=== PATIENT | male | born 1980 | race Caucasian/White ===

== ENCOUNTER 2017-05-02 01:34 | Inpatient (IN) | payer BC, SELFPAY ==
[2017-05-02] MEDS ORDERED: Ondansetron HCl/PF 4 MG/2 ML Vial ONE (03:01)
[2017-05-02] MEDS ORDERED: Ketorolac Tromethamine 30 MG/ML VIAL ONE (05:30)
[2017-05-02] MEDS ORDERED: Diabetic Tussin 200 MG/10 ML UDCUP PO PRN (08:39)
[2017-05-02] MEDS ORDERED: Sodium Chloride 0.65% Nasal 44 ML BOT EA NARE PRN (08:39)
[2017-05-02] MEDS ORDERED: Milk Of Magnesia 30 ML UDCUP PO PRN (08:39)
[2017-05-02] MEDS ORDERED: Artificial Tears 18 DROP/0.9 ML EA EYE PRN (08:39)
[2017-05-02] MEDS ORDERED: Loperamide HCl 2 MG CAP PO PRN (08:39)
[2017-05-02] MEDS ORDERED: Eucerin (Mineral Oil/Petrolatum,White) 30 gm Jar TOP PRN (08:39)
[2017-05-02] MEDS ORDERED: Acetaminophen 325 MG TAB PO PRN (08:39)
[2017-05-02] MEDS ORDERED: cloNIDine 0.1 MG TAB PO PRN (08:39)
[2017-05-02] MEDS ORDERED: Morphine 5 MG/ML SYRINGE SLOW IVP PRN (08:39)
[2017-05-02] MEDS ORDERED: Zolpidem Tartrate 5 MG TAB PO PRN (08:39)
[2017-05-02] MEDS ORDERED: Ondansetron ODT 4 MG TAB PO PRN (08:39)
[2017-05-02] MEDS ORDERED: Mag-Al 1200 mg/1200 mg/30 ML UDCUP PO PRN (08:39)
[2017-05-02] MEDS ORDERED: Senokot 8.6 MG TAB PO PRN (08:39)
[2017-05-02] MEDS ORDERED: Chloraseptic Spray 180 ml Bottle PO PRN (08:39)
[2017-05-02] MEDS ORDERED: Loratadine 10 MG TAB PO PRN (08:39)
[2017-05-02] MEDS ORDERED: Ondansetron HCl/PF 4 MG/2 ML Vial IVP PRN (08:39)
[2017-05-02] MEDS ORDERED: hydrALAZINE 20 MG/ML VIAL SLOW IVP PRN (08:39)
[2017-05-02] MEDS ORDERED: Cefepime 2 GM in Sodium Chloride 0.9% 100 ML IVPB SCH (09:00)
[2017-05-02 09:09] LABS: #Eosinphils 0.2 thou/uL (0.0-0.7); #Monocytes 0.9 thou/uL (0.11-0.59); #Neutrophils 5.2 thou/uL (1.40-6.50); %Basophils 0.6 % (0.0-1.0); %Eosinophils 2.1 % (0.0-10.0); %Lymphocytes 13.1 % (21.0-51.0); %Monocytes 12.7 % (0.0-10.0); %Neutrophils 71.5 % (42.0-75.0); Hemoglobin 15.1 g/dL (14.0-18.0); Mean Corpuscular HGB CONC 35.1 g/dL (32.0-36.0); Mean Corpuscular Hemoglobin 33.9 pg (27.0-31.0); Mean Corpuscular Volume 96.7 fl (80.0-94.0); Mean Platelet Volume 6.9 fL (7.4-10.4); Platelet Count 239 thou/uL (130-400); RBC Distribution Width 11.8 % (11.5-14.5); Red Blood Cell (RBC) Count 4.46 mill/uL (4.70-6.10); White Blood Cell (WBC) Count 7.3 thou/uL (4.8-10.8)
[2017-05-02 09:26] LABS: Lactic Acid 3.5 mmol/L (0.5-2.2)
[2017-05-02 09:30] LABS: ALT (SGPT) 74 U/L (8-55); AST (SGOT) 86 U/L (5-34); Albumin 3.8 g/dL (3.5-5.0); Alkaline Phosphatase 102 U/L (40-150); Anion Gap 16 mmol/L (10-20); BUN (Urea Nitrogen) 13 mg/dL (8.9-20.6); Bilirubin, Total 0.4 mg/dL (0.2-1.2); Calc. Creatinine Clearance 0 mL/min (70-130); Calcium 8.6 mg/dL (7.8-10.44); Carbon Dioxide 22 mmol/L (22-29); Chloride 104 mmol/L (98-107); Estimated GFR-MDRD 75; Globulin 3.4 g/dL (2.4-3.5); Glucose 86 mg/dL (70-105); Protein, Total 7.2 g/dL (6.0-8.3); Sodium 138 mmol/L (136-145)
[2017-05-02] MEDS: Sodium Chloride 0.9% 1,000 ML IV SCH ×2 (10:56→23:28)
[2017-05-02 11:08] VITALS: BMI 27.1
[2017-05-02] MEDS: Enoxaparin Sodium 40 MG/0.4 ML SYRINGE SC SCH (11:28)
[2017-05-02] MEDS: Cyanocobalamin (Vitamin B-12) 1,000 MCG TAB PO SCH (11:28)
[2017-05-02] MEDS: Multivitamin W/ Minerals 1 TAB PO SCH (11:29)
[2017-05-02] MEDS: Famotidine 20 MG TAB PO SCH ×2 (11:29→20:10)
[2017-05-02] MEDS: Folic Acid 1 MG TAB PO SCH (11:29)
[2017-05-02] MEDS: Cefepime 2 GM, Syringe 2.5 ML in Sterile Water 10 ML SLOW IVP SCH ×2 (11:39→23:25)
[2017-05-02] MEDS: Vancomycin HCl 1.25 GM in Sodium Chloride 0.9% 250 ML 250 ML IVPB SCH ×2 (11:46→23:36)
[2017-05-02] MEDS: Morphine 5 MG/ML SYRINGE SLOW IVP PRN ×2 (13:09→15:56)
--- NOTE | 2017-05-02 15:54 | HP ---
PRIMARY CARE PHYSICIAN: City call admission. REASON FOR ADMISSION: Right ear otitis media and externa, right parotitis, acute kidney failure, lac tic acidosis. HISTORY OF PRESENT ILLNESS: A 36-year-old male, who has history of meningitis when he was a child an d subsequently he lost his hearing from his left ear. He was having right ear pain and right ear dis charge for the last several days and that is why he went to the ER and the patient was given ear drop s. He was using ciprofloxacin otic drops, but the patient was not feeling any better, though he was feeling worse. He was having severe throbbing ear pain as well as right-sided facial pain, headache, and he was having subjective fever and that is why he decided to go to [facility] [place] ER, where the patie nt had a CT soft tissue and that that showed right otitis media and externa as well as foci of air an d there was concern of gas forming organism infection. The patient was also noticed right side of hi s facial swelling and he was having unbearable pain. He was given morphine 4 mg. He was given cefep herson and clindamycin at [facility] and he was also given Zofran and subsequently he was transferred to our hospital for higher level of care. When he presented to our emergency room, he was hypertensi ve from pain. ENT physician was consulted from ER. Family member was present at bedside and they pr ovided most of the history. Patient never had this type of ear infection in past. He denies any flu-like illness. He denies any recent upper respiratory infection. He denies any headache. He denies any focal motor symptoms. H e denies any chest pain, palpitation, or cough. He denies any UTI symptoms. He denies any constipat ion or diarrhea. ALLERGIES: No known drug allergies. CURRENT HOME MEDICATIONS: The patient is not taking any current medication other than he was using o tic drops for ear infection. REVIEW OF SYSTEMS: The following complete review of systems was negative, unless otherwise mentioned in the HPI or below: Constitutional: Weight loss or gain, ability to conduct usual activities. Skin: Rash, itching. Eyes: Double vision, pain. ENT/Mouth: Nose bleeding, neck stiffness, pain, tenderness. Cardiovascul ar: Palpitations, dyspnea on exertion, orthopnea. Respiratory: Shortness of breath, wheezing, cough, hemoptysis, fever or night sweats. Gastrointestinal: Poor appetite, abdominal pain, heartburn, naus ea, vomiting, constipation, or diarrhea. Genitourinary: Urgency, frequency, dysuria, nocturia. Musc uloskeletal: Pain, swelling. Neurologic/Psychiatric: Anxiety, depression. Allergy/Immunologic: Skin rash, bleeding tendency. Please see my HPI for pertinent positives and negative. All other review of systems reviewed and neg ative except as mentioned in the HPI. PAST MEDICAL HISTORY: History of meningitis when he was 2 years of age and after that he lost his he aring from the left ear. The patient is not up to date in the flu, pneumonia, and tetanus vaccinatio n. PAST SURGICAL HISTORY: Reviewed and negative. PAST PSYCHIATRIC HISTORY: Reviewed and negative. SOCIAL HISTORY: The patient drinks alcohol socially. He smokes cigarettes about 1 pack per day. He denies any other illicit drug abuse. He is working in a [employer] center. FAMILY HISTORY: No strong family history of premature coronary artery disease, stroke or cancer. EMERGENCY ROOM COURSE: Patient has received morphine 4 mg, Toradol 30 mg, Zofran 4 mg, morphine 4 mg and at [facility] room, patient was given Zofran, morphine, cefepime, and clindamycin. PHYSICAL EXAMINATION: VITAL SIGNS: Currently, blood pressure 191/124, pulse 104, respiratory rate 18, temperature 97.7, sa turation 96% on room air, and weight 86.1 kilograms. GENERAL: Patient is currently uncomfortable due to ear pain. HEAD: Normocephalic, atraumatic. EYES: Pupils round, reactive to light. Extraocular muscle intact. ENT: Right ear auditory canal appears to be obstructed and tender. Dental carries in right lower mo lar. The patient has tenderness behind in the right ear, no discharge noted at this point. NECK: Supple, no JVD, no thyromegaly, no carotid bruit, no jugular venous distention. LUNGS: Clear to auscultation without any rhonchi or rales. CARDIAC: S1, S2 regular without any murmur. ABDOMEN: Soft, bowel sounds present, nontender, nondistended. No organomegaly, no mass, no suprapub ic tenderness. BACK: Unremarkable, no CVA tenderness. EXTREMITIES: Upper extremity passive movement of all joints are normal. Lower extremities: No ivone a. Good peripheral pulsation. SKIN: No skin rash. HEMATOLOGICAL: No lymphadenopathy. PSYCHIATRIC: Normal affect. SIGNIFICANT LABORATORY DATA: 1. CBC: WBC 7.3, hemoglobin 15.1, platelets 239. BMP: Sodium 138, potassium 4.0, chloride 104, ca rbon dioxide 22, anion gap 16, BUN 13, creatinine 1.10, glucose 86, calcium 8.6, lactic acid 3.5. 2. LFT: AST 86, ALT 74, alkaline phosphatase 102, albumin 3.8. Blood test done at [facility] completely reviewed by me. CT neck done at [facility] reported as a right-sided otitis externa, otitis media, and right parotitis, foci of air within the right parotid , suspicious for gas forming infection. ASSESSMENT AND PLAN: 1. Acute right otitis media and otitis externa failed outpatient therapy. We will start cefepime 2 gram IV q.12 hourly and vancomycin as per pharmacy as adjusted dose and we will also continue ciprofl oxacin otic drops right ear b.i.d. We will consult ENT further opinion. We will control his pain wi th morphine p.r.n. basis. 2. History of right parotitis with right-sided facial cellulitis. Patient is already on cefepime an d vancomycin and we will monitor clinical response. 3. Acute kidney failure. The patient will be given IV fluid and will repeat BMP tomorrow, already p fabricio's creatinine has improvement from [facility] [place] ER labs with IV fluids. 4. Lactic acidosis. We will repeat lactic acid tomorrow likely due to underlying infection. 5. Abnormal liver function tests, likely due to his alcohol abuse and probably also related with sep sis. We will repeat LFTs tomorrow. 6. Tobacco abuse disorder. Smoking cessation counseling given. Healthy lifestyle measures discusse d with the patient. 7. Hypertension, likely due to his pain, but patient is not having any previous history of hypertens ion. We will monitor while in hospital and if patient remains persistently hypertensive, then we natalie l consider antihypertensive medication on discharge, alcohol abuse, and patient will be given folic a willy, vitamin B12 therapy, and patient counseling given to avoid alcohol abuse. 8. Deep venous thrombosis prophylaxis. Lovenox 40 mg subcutaneously daily. 9. Gastrointestinal prophylaxis. Pepcid 20 mg p.o. b.i.d. 10. Code status: The patient is FULL CODE. The patient is making his own decision and he does not have any surrogate decision maker. Disposition plan based on clinical course. We are expecting patient's stay in the hospital more than 2 midnights. Plan of care discussed with the patient and family member at bedside.
[2017-05-02] MEDS: Ciprofloxacin 0.2% Otic R EAR SCH ×2 (19:04→20:11)
[2017-05-02] MEDS: HYDROcodone/Acetaminophen 10/325 mg Tablet PO PRN (20:10)
[2017-05-03] MEDS: HYDROcodone/Acetaminophen 10/325 mg Tablet PO PRN ×5 (00:01→23:29)
[2017-05-03] MEDS: Sodium Chloride 0.9% 1,000 ML IV SCH (03:44)
[2017-05-03 05:58] LABS: ALT (SGPT) 54 U/L (8-55); AST (SGOT) 62 U/L (5-34); Albumin 3.4 g/dL (3.5-5.0); Alkaline Phosphatase 95 U/L (40-150); Anion Gap 9 mmol/L (10-20); BUN (Urea Nitrogen) 11 mg/dL (8.9-20.6); Bilirubin, Total 0.4 mg/dL (0.2-1.2); Calc. Creatinine Clearance 127 mL/min (70-130); Calcium 8.2 mg/dL (7.8-10.44); Carbon Dioxide 28 mmol/L (22-29); Chloride 101 mmol/L (98-107); Estimated GFR-MDRD 87; Globulin 3.1 g/dL (2.4-3.5); Glucose 126 mg/dL (70-105); Potassium 3.4 mmol/L (3.5-5.1); Protein, Total 6.5 g/dL (6.0-8.3); Sodium 135 mmol/L (136-145)
[2017-05-03 06:02] LABS: Lactic Acid 1.9 mmol/L (0.5-2.2)
[2017-05-03 06:10] LABS: Band 9 % (5-11); Hemoglobin 14.4 g/dL (14.0-18.0); Lymphocytes 35 % (21-51); MDiff Complete? YES; Macrocytosis SLIGHT = 6-15 cells (100X) (0-5/hpf); Mean Corpuscular HGB CONC 34.2 g/dL (32.0-36.0); Mean Corpuscular Hemoglobin 33.2 pg (27.0-31.0); Mean Platelet Volume 7.2 fL (7.4-10.4); Monocytes 11 % (0-10); Neutrophil 45 % (42-75); PLT Morphology Comment Appears Adequate; Platelet Count 210 thou/uL (130-400); RBC Distribution Width 11.6 % (11.5-14.5); Red Blood Cell (RBC) Count 4.34 mill/uL (4.70-6.10); White Blood Cell (WBC) Count 5.2 thou/uL (4.8-10.8)
[2017-05-03] MEDS: Cyanocobalamin (Vitamin B-12) 1,000 MCG TAB PO SCH (09:18)
[2017-05-03] MEDS: Folic Acid 1 MG TAB PO SCH (09:18)
[2017-05-03] MEDS: Multivitamin W/ Minerals 1 TAB PO SCH (09:18)
[2017-05-03] MEDS: Famotidine 20 MG TAB PO SCH ×2 (09:19→20:45)
[2017-05-03] MEDS: Enoxaparin Sodium 40 MG/0.4 ML SYRINGE SC SCH (09:21)
[2017-05-03 09:42] LABS: Bilirubin Negative (Negative); Blood, Urine Small (Negative); Clarity CLEAR (Clear); Glucose, Urine (Dipstick) Negative (Negative); Leukocyte Negative (Negative); Nitrite Negative (Negative); Protein, Urine (Dipstick) Negative (Neg-Trace); Specific Gravity, Urine 1.015 (1.002-1.036); Urobilinogen 0.2 mg/dL (0.2-1.0)
[2017-05-03 09:43] LABS: Bacteria/HPF None Seen HPF (None Seen); Hyaline Casts/LPF 0-3 HYALINE CAST LPF (0-3 Hyaline); Pathc Cast-AUWi Flag 0.13 (0-2.49); Squamous Epithelial None Seen HPF (0-3); WBC/HPF 0-3 HPF (0-3)
[2017-05-03] MEDS: Ciprofloxacin 0.2% Otic R EAR SCH ×2 (10:46→20:45)
--- NOTE | 2017-05-03 10:54 | PDOC.PN ---
- Subjective Encounter Start Date: 05/03/17 Encounter Start Time: 09:00 -: old records requested/rev pt is doing well, no respi distress, has soft voice, no fever - Objective Resuscitation Status: Resuscitation Status FULL:Full Resuscitation MAR Reviewed: Yes Vital Signs & Weight: Vital Signs (12 hours) Temp Pulse Resp BP Pulse Ox 05/03/17 08:10 98.2 F 60 18 05/03/17 08:00 98.2 F 60 18 175/92 H 93 L 05/03/17 04:00 98.9 F 60 20 159/91 H 05/03/17 00:00 99.3 F 74 18 169/99 H Weight Weight 189 lb 2 oz I&O: 05/02/17 05/03/17 05/04/17 06:59 06:59 06:59 Intake Total 1570 Balance 1570 Result Diagrams: 05/03/17 05:24 05/03/17 05:24 Phys Exam - Physical Examination Constitutional: NAD HEENT: PERRLA, moist MMs, sclera anicteric Neck: no JVD, supple Respiratory: no wheezing, no rales, no rhonchi Cardiovascular: RRR, no significant murmur, no rub Gastrointestinal: soft, non-tender, no distention, positive bowel sounds Musculoskeletal: no edema, pulses present Neurological: non-focal, normal sensation, moves all 4 limbs Lymphatic: no nodes Psychiatric: normal affect, A&O x 3 Skin: no rash, normal turgor Dx/Plan (1) Acute kidney injury Code(s): N17.9 - ACUTE KIDNEY FAILURE, UNSPECIFIED Status: Acute (2) Hypertension Code(s): I10 - ESSENTIAL (PRIMARY) HYPERTENSION Status: Acute (3) Lactic acidosis Code(s): E87.2 - ACIDOSIS Status: Acute (4) Parotitis, acute Code(s): K11.21 - ACUTE SIALOADENITIS Status: Acute (5) Right otitis externa Code(s): H60.91 - UNSPECIFIED OTITIS EXTERNA, RIGHT EAR Status: Acute (6) Right otitis media Code(s): H66.91 - OTITIS MEDIA, UNSPECIFIED, RIGHT EAR Status: Acute (7) Transaminitis Code(s): R74.0 - NONSPEC ELEV OF LEVELS OF TRANSAMNS & LACTIC ACID DEHYDRGNSE Status: Acute (8) Alcohol abuse Code(s): F10.10 - ALCOHOL ABUSE, UNCOMPLICATED Status: Chronic (9) Deafness in left ear Code(s): H91.92 - UNSPECIFIED HEARING LOSS, LEFT EAR Status: Chronic (10) Tobacco abuse Code(s): Z72.0 - TOBACCO USE Status: Chronic - Plan cont current plan of care, plan discussed w/ family, continue antibiotics * continue cefepime and vancomycin * ENT to see today * pain controlled * discussed with family bedside * slowly improving * DC IVF. Review of Systems - Review of Systems Constitutional: negative: fever, chills, sweats, weakness, malaise, other ENT: Ear Pain. negative: Ear Discharge, Nose Pain, Nose Discharge, Nose Congestion, Mouth Pain, Mouth Swelling, Throat Pain, Throat Swelling, Other Respiratory: negative: Cough, Dry, Shortness of Breath, Hemoptysis, SOB with Excertion, Pleuritic Pain, Sputum, Wheezing Cardiovascular: negative: chest pain, palpitations, orthopnea, paroxysmal nocturnal dyspnea, edema, light headedness, other Gastrointestinal: negative: Nausea, Vomiting, Abdominal Pain, Diarrhea, Constipation, Melena, Hematochezia, Other Genitourinary: negative: Dysuria, Frequency, Incontinence, Hematuria, Retention , Other Musculoskeletal: negative: Neck Pain, Shoulder Pain, Arm Pain, Back Pain, Hand Pain, Leg Pain, Foot Pain, Other Skin: negative: Rash, Lesions, Marcus, Bruising, Other - Medications/Allergies Allergies/Adverse Reactions: Allergies Allergy/AdvReac Type Severity Reaction Status Date / Time No Known Drug Allergies Allergy Verified 05/02/17 10:27 Medications: Current Medications Acetaminophen (Tylenol) 650 mg PO Q4H PRN PRN Reason: Headache/Fever or Pain Hydrocodone Bitart/Acetaminophen ([place] 10/325) 1 tab PO Q4H PRN PRN Reason: Moderate Pain (4-6) Last Admin: 05/03/17 09:19 Dose: 1 tab Al Hydroxide/Mg Hydroxide (Maalox) 30 ml PO Q6H PRN PRN Reason: Heartburn or Indigestion Artificial Tears (Tears Naturale) 0 drop EA EYE PRN PRN PRN Reason: Dry Eyes Ciprofloxacin (Cipro 0.2% Otic) 4 drop R EAR BID [facility] Last Admin: 05/03/17 10:46 Dose: 4 drop Clonidine (Catapres) 0.1 mg PO Q4H PRN PRN Reason: Systolic BP > 180 Cyanocobalamin (Vitamin B-12) 1,000 mcg PO DAILY [facility] Last Admin: 05/03/17 09:18 Dose: 1,000 mcg Enoxaparin Sodium (Lovenox) 40 mg SC 0900 [facility] Last Admin: 05/03/17 09:21 Dose: 40 mg Famotidine (Pepcid) 20 mg PO BID [facility] Last Admin: 05/03/17 09:19 Dose: 20 mg Folic Acid (Folvite) 1 mg PO DAILY [facility] Last Admin: 05/03/17 09:18 Dose: 1 mg Guaifenesin (Robitussin Sf) 200 mg PO Q4H PRN PRN Reason: Cough Hydralazine HCl (Apresoline) 10 mg SLOW IVP Q4H PRN PRN Reason: Systolic BP > 180 Sodium Chloride (Normal Saline 0.9%) 1,000 mls @ 75 mls/hr IV .[id number] [facility] Last Admin: 05/03/17 03:44 Dose: 1,000 mls Cefepime HCl 2 gm/ Syringe 2.5 (ml/ Sterile Water) 12.5 mls @ 150 mls/hr SLOW IVP 1100,2300 [facility] Last Admin: 05/02/17 23:25 Dose: 12.5 mls Vancomycin HCl 1.25 gm/ Sodium (Chloride) 250 mls @ 166.667 mls/hr IVPB 0000, 1200 [facility] Last Admin: 05/02/17 23:36 Dose: 250 mls Iron/Minerals/Multivitamins (Theragran M) 1 tab PO DAILY [facility] Last Admin: 05/03/17 09:18 Dose: 1 tab Loperamide HCl (Imodium) 2 mg PO PRN PRN PRN Reason: Diarrhea/Loose Stools Loratadine (Claritin) 10 mg PO DAILYPRN PRN PRN Reason: Sinus Symptoms Magnesium Hydroxide (Milk Of Magnesium) 30 ml PO DAILYPRN PRN PRN Reason: Constipation Mineral Oil/White Petrolatum (Eucerin Cream) 0 gm TOP BIDPRN PRN PRN Reason: Dry Skin Miscellaneous Medication (Pharmacy To Dose) 0 each IVPB ASDIR PRN PRN Reason: Pharmacy to Dose VANCOMYCIN Morphine Sulfate (Morphine) 4 mg SLOW IVP Q4H PRN PRN Reason: Severe Pain (7-10) Last Admin: 05/02/17 10:58 Dose: 2 mg Morphine Sulfate (Morphine) 2 mg SLOW IVP PRN PRN PRN Reason: Pain Last Admin: 05/02/17 15:56 Dose: 2 mg Ondansetron HCl (Zofran Odt) 4 mg PO Q6H PRN PRN Reason: Nausea/Vomiting Ondansetron HCl (Zofran) 4 mg IVP Q6H PRN PRN Reason: Nausea/Vomiting Phenol (Chloraseptic [place] 180 Ml Bot) 0 ml PO PRN PRN PRN Reason: Sore Throat Senna (Senokot) 2 tab PO HSPRN PRN PRN Reason: Constipation Sodium Chloride ([place] Nasal [place] 0.65%) 0 ml EA NARE QIDPRN PRN PRN Reason: Nasal Congestion Zolpidem Tartrate (Ambien) 5 mg PO HSPRN PRN PRN Reason: Insomnia
[2017-05-03] MEDS: Cefepime 2 GM, Syringe 2.5 ML in Sterile Water 10 ML SLOW IVP SCH ×2 (11:31→23:32)
[2017-05-03] MEDS: Vancomycin HCl 1.25 GM in Sodium Chloride 0.9% 250 ML 250 ML IVPB SCH ×2 (12:00→23:41)
[2017-05-03 23:30] LABS: Vancomycin, Trough 8.9 ug/mL
--- NOTE | 2017-05-03 23:37 | CON ---
DATE OF CONSULTATION: 05/03/2017. REASON FOR CONSULTATION: The patient was seen in consultation by [facility] for evaluation of right otitis externa. BRIEF HISTORY: This is a gentleman who came in with severe right ear pain over the last week. He re ports fullness in his ears. He was concerned about wax impaction. He uses hearing aids on his right side. He has a history of near-complete deafness on his right side and complete deafness on his lef t side. Since admission, he has been on IV antibiotics. He reports that his pain is now much improv ed. Still has muffled hearing and autophony on that right side, unable to use his hearing aid second renea to some ear canal swelling and tenderness. Otherwise, no facial nerve involvement. No dizziness , vertigo. Fevers have subsided. White count has returned to normal. PAST MEDICAL HISTORY: 1. Congenital sensorineural hearing loss bilaterally. 2. Episodic hypertension. PAST SURGICAL HISTORY: Noncontributory. REVIEW OF SYSTEMS: General: No fevers, chills, weight changes. Cardiovascular: No chest pain. No orthopnea. Pulmonary: No coughing, wheeze, or history of pulmonary condition. Hematology: No ble eding disorders. SOCIAL HISTORY: Nonsmoker. Occasional alcohol. FAMILY HISTORY: Noncontributory. PHYSICAL EXAMINATION: GENERAL: The patient is resting comfortably in the bed, very cooperative with the exam. He reads li ps and communicates very well. EARS: Left ear: TM is intact. Middle ear is well-aerated. Right ear: There is some swelling in t he ear canal. It is not completely occluded; however, there is remnant skin present and debris indicating a partial ear impaction along with a resolving otitis externa. There is no tenderness of the tragus. Auricle is mobile without tenderness. Mastoid bone is intact. No evidence of edema or effusion. NECK: No lymphadenopathy or masses. NOSE: Nasal cavity is somewhat congested. ORAL CAVITY AND OROPHARYNX: Tonsils are 1+ to absent, mild lateral pharyngeal banding. ASSESSMENT: 1. Right otitis externa. 2. Bilateral sensorineural hearing loss. PLAN: His hypertension is being evaluated today. As soon as his blood pressure is under control, th e patient is allowed to be discharged to follow up immediately with our clinic, where we have the too ls and capability to perform an ear debridement on this right side, which should allow him to resume hearing aid usage.
[2017-05-04] MEDS: HYDROcodone/Acetaminophen 10/325 mg Tablet PO PRN ×2 (04:32→09:27)
[2017-05-04] MEDS ORDERED: Vancomycin HCl 1.25 GM in Sodium Chloride 0.9% 250 ML 250 ML IVPB SCH (08:00)
[2017-05-04 08:17] VITALS: BP 141/92; TEMP 97.8
[2017-05-04] MEDS ORDERED: NIFEdipine XL 30 MG TAB PO SCH (09:00)
[2017-05-04] MEDS: Cyanocobalamin (Vitamin B-12) 1,000 MCG TAB PO SCH (09:26)
[2017-05-04] MEDS: Folic Acid 1 MG TAB PO SCH (09:26)
[2017-05-04] MEDS: Famotidine 20 MG TAB PO SCH (09:26)
[2017-05-04] MEDS: Multivitamin W/ Minerals 1 TAB PO SCH (09:26)
[2017-05-04] MEDS: Enoxaparin Sodium 40 MG/0.4 ML SYRINGE SC SCH (09:27)
--- NOTE | 2017-05-04 10:44 | PDOC.PN ---
- Subjective Encounter Start Date: 05/04/17 Encounter Start Time: 07:20 Patient seen and examined. No new complaints. No overnight events pain controlled - Objective Resuscitation Status: Resuscitation Status FULL:Full Resuscitation MAR Reviewed: Yes Vital Signs & Weight: Vital Signs (12 hours) Temp Pulse Resp BP BP BP Pulse Ox 05/04/17 09:27 57 L 05/04/17 08:15 97.8 F 57 L 20 05/04/17 08:00 97.8 F 57 L 20 141/92 H 98 05/04/17 04:25 97.6 F 55 L 20 160/92 H 05/04/17 02:10 57 L 20 164/97 H 05/04/17 01:26 175/105 H 05/03/17 23:30 98.6 F 68 18 158/101 H Weight Weight 189 lb 2 oz I&O: 05/03/17 05/04/17 05/05/17 06:59 06:59 06:59 Intake Total 1570 900 Balance 1570 900 Result Diagrams: 05/03/17 05:24 05/03/17 05:24 Phys Exam - Physical Examination Constitutional: NAD HEENT: PERRLA, moist MMs, sclera anicteric Neck: no JVD, supple Respiratory: no wheezing, no rales, no rhonchi Cardiovascular: RRR, no significant murmur, no rub Gastrointestinal: soft, non-tender, no distention, positive bowel sounds Musculoskeletal: no edema, pulses present Neurological: non-focal, normal sensation, moves all 4 limbs Psychiatric: normal affect, A&O x 3 Skin: no rash, normal turgor Dx/Plan (1) Acute kidney injury Code(s): N17.9 - ACUTE KIDNEY FAILURE, UNSPECIFIED Status: Acute (2) Hypertension Code(s): I10 - ESSENTIAL (PRIMARY) HYPERTENSION Status: Acute (3) Lactic acidosis Code(s): E87.2 - ACIDOSIS Status: Acute (4) Parotitis, acute Code(s): K11.21 - ACUTE SIALOADENITIS Status: Acute (5) Right otitis externa Code(s): H60.91 - UNSPECIFIED OTITIS EXTERNA, RIGHT EAR Status: Acute (6) Right otitis media Code(s): H66.91 - OTITIS MEDIA, UNSPECIFIED, RIGHT EAR Status: Acute (7) Transaminitis Code(s): R74.0 - NONSPEC ELEV OF LEVELS OF TRANSAMNS & LACTIC ACID DEHYDRGNSE Status: Acute (8) Alcohol abuse Code(s): F10.10 - ALCOHOL ABUSE, UNCOMPLICATED Status: Chronic (9) Deafness in left ear Code(s): H91.92 - UNSPECIFIED HEARING LOSS, LEFT EAR Status: Chronic (10) Tobacco abuse Code(s): Z72.0 - TOBACCO USE Status: Chronic - Plan cont current plan of care, plan discussed w/ family, continue antibiotics * change to augmentin and doxy * T3 for pain given * stable enough to go to ENT office today for more care * medication reviewed as below * symptomatic treatment * see discharge summery * all new medication prescription sent to pharmacy. Review of Systems - Review of Systems ENT: negative: Ear Pain, Ear Discharge, Nose Pain, Nose Discharge, Nose Congestion, Mouth Pain, Mouth Swelling, Throat Pain, Throat Swelling, Other Respiratory: negative: Cough, Dry, Shortness of Breath, Hemoptysis, SOB with Excertion, Pleuritic Pain, Sputum, Wheezing Cardiovascular: negative: chest pain, palpitations, orthopnea, paroxysmal nocturnal dyspnea, edema, light headedness, other Gastrointestinal: negative: Nausea, Vomiting, Abdominal Pain, Diarrhea, Constipation, Melena, Hematochezia, Other Genitourinary: negative: Dysuria, Frequency, Incontinence, Hematuria, Retention , Other Musculoskeletal: negative: Neck Pain, Shoulder Pain, Arm Pain, Back Pain, Hand Pain, Leg Pain, Foot Pain, Other Skin: negative: Rash, Lesions, Marcus, Bruising, Other - Medications/Allergies Allergies/Adverse Reactions: Allergies Allergy/AdvReac Type Severity Reaction Status Date / Time No Known Drug Allergies Allergy Verified 05/02/17 10:27 Medications: Current Medications Acetaminophen (Tylenol) 650 mg PO Q4H PRN PRN Reason: Headache/Fever or Pain Hydrocodone Bitart/Acetaminophen ([place] 10/325) 1 tab PO Q4H PRN PRN Reason: Moderate Pain (4-6) Last Admin: 05/04/17 09:27 Dose: 1 tab Al Hydroxide/Mg Hydroxide (Maalox) 30 ml PO Q6H PRN PRN Reason: Heartburn or Indigestion Artificial Tears (Tears Naturale) 0 drop EA EYE PRN PRN PRN Reason: Dry Eyes Ciprofloxacin (Cipro 0.2% Otic) 4 drop R EAR BID [facility] Last Admin: 05/03/17 20:45 Dose: 4 drop Clonidine (Catapres) 0.1 mg PO Q4H PRN PRN Reason: Systolic BP > 160 Last Admin: 05/04/17 01:26 Dose: 0.1 mg Cyanocobalamin (Vitamin B-12) 1,000 mcg PO DAILY [facility] Last Admin: 05/04/17 09:26 Dose: 1,000 mcg Enoxaparin Sodium (Lovenox) 40 mg SC 0900 [facility] Last Admin: 05/04/17 09:27 Dose: 40 mg Famotidine (Pepcid) 20 mg PO BID [facility] Last Admin: 05/04/17 09:26 Dose: 20 mg Folic Acid (Folvite) 1 mg PO DAILY [facility] Last Admin: 05/04/17 09:26 Dose: 1 mg Guaifenesin (Robitussin Sf) 200 mg PO Q4H PRN PRN Reason: Cough Hydralazine HCl (Apresoline) 10 mg SLOW IVP Q4H PRN PRN Reason: Systolic BP > 170 Last Admin: 05/03/17 11:18 Dose: 10 mg Cefepime HCl 2 gm/ Syringe 2.5 (ml/ Sterile Water) 12.5 mls @ 150 mls/hr SLOW IVP 1100,2300 [facility] Last Admin: 05/03/17 23:32 Dose: 12.5 mls Vancomycin HCl 1.25 gm/ Sodium (Chloride) 250 mls @ 166.667 mls/hr IVPB 0800, 1600,2359 [facility] Last Admin: 05/04/17 08:19 Dose: 250 mls Iron/Minerals/Multivitamins (Theragran M) 1 tab PO DAILY [facility] Last Admin: 05/04/17 09:26 Dose: 1 tab Loperamide HCl (Imodium) 2 mg PO PRN PRN PRN Reason: Diarrhea/Loose Stools Loratadine (Claritin) 10 mg PO DAILYPRN PRN PRN Reason: Sinus Symptoms Magnesium Hydroxide (Milk Of Magnesium) 30 ml PO DAILYPRN PRN PRN Reason: Constipation Mineral Oil/White Petrolatum (Eucerin Cream) 0 gm TOP BIDPRN PRN PRN Reason: Dry Skin Miscellaneous Medication (Pharmacy To Dose) 0 each IVPB ASDIR PRN PRN Reason: Pharmacy to Dose VANCOMYCIN Morphine Sulfate (Morphine) 4 mg SLOW IVP Q4H PRN PRN Reason: Severe Pain (7-10) Last Admin: 05/02/17 10:58 Dose: 2 mg Morphine Sulfate (Morphine) 2 mg SLOW IVP PRN PRN PRN Reason: Pain Last Admin: 05/02/17 15:56 Dose: 2 mg Nifedipine (Procardia Xl) 30 mg PO DAILY [facility] Last Admin: 05/04/17 09:27 Dose: 30 mg Ondansetron HCl (Zofran Odt) 4 mg PO Q6H PRN PRN Reason: Nausea/Vomiting Ondansetron HCl (Zofran) 4 mg IVP Q6H PRN PRN Reason: Nausea/Vomiting Phenol (Chloraseptic [place] 180 Ml Bot) 0 ml PO PRN PRN PRN Reason: Sore Throat Senna (Senokot) 2 tab PO HSPRN PRN PRN Reason: Constipation Sodium Chloride ([place] Nasal [place] 0.65%) 0 ml EA NARE QIDPRN PRN PRN Reason: Nasal Congestion Zolpidem Tartrate (Ambien) 5 mg PO HSPRN PRN PRN Reason: Insomnia
--- NOTE | 2017-05-04 10:44 | DIS ---
DATE OF ADMISSION: 05/02/2017 DATE OF DISCHARGE: 05/04/2017 PRIMARY CARE PHYSICIAN: Salma Collins. DISCHARGE DISPOSITION: Home. PRIMARY DISCHARGE DIAGNOSES: Acute right otitis externa and media; acute right parotitis; lactic aci dosis, resolved; abnormal liver function test; acute kidney failure, improved; hypertension, SECONDARY DISCHARGE DIAGNOSES: Tobacco abuse disorder, alcohol abuse, deafness in left ear. PRIMARY PROCEDURE/OPERATION: None. RADIOLOGICAL INVESTIGATION: The patient had CT soft tissue of face at [facility] which confirmed r ight otitis media and externa as well as bright parotitis. SIGNIFICANT LABORATORY DATA: WBC 5.2, platelet 210, creatinine 0.97, lactic acid 1.9. Urinalysis un remarkable. Cultures remain negative. DISCHARGE MEDICATIONS: Tylenol No. 3 one to two tablets q.6 hourly p.r.n., Augmentin 875 mg p.o. b.i .d. for 10 days, ciprofloxacin otic drops 4 drops right ear b.i.d., vitamin B12 1000 mcg p.o. daily, doxycycline 100 mg p.o. b.i.d. for 10 days, Pepcid 20 mg p.o. b.i.d., folic acid 1 mg p.o. daily, mul tivitamin 1 tablet p.o. daily, Procardia XL 30 mg p.o. daily. CONTRAINDICATIONS: None. CODE STATUS: FULL CODE. INPATIENT CONSULTANTS: Dr. Tristan Hall was consulted and he is going to do debridement in his off ce. TEST RESULTS PENDING ON DISCHARGE: None. ALLERGIES: No known drug allergy. DISCHARGE PLAN: After discharge, the patient will go to ENT office for debridement. HOSPITAL COURSE: A 36-year-old male who was initially evaluated at [facility] for right ear pain. He was diagnosed with right otitis media and externa. He was having decreased hearing from right si de. He is chronically deaf on the left ear. He was transferred to our hospital. We treated him wit h broad-spectrum antibiotic therapy with cefepime and vancomycin. His pain was controlled with narco tics. While in hospital, we noted that he was hypotensive and that is why we added Procardia XL on h is regimen. The patient has alcohol and tobacco abuse history and that is why we provided counseling to avoid alcohol and tobacco. We prescribed vitamins upon discharge. ENT doctor saw this patient a nd they wanted to do debridement in their office. At this point, the patient is afebrile. His pain is well controlled and we are discharging him home, so he can follow up with ENT doctor today. All new medication prescriptions given to patient. The patient is seen and examined at bedside today. Please see my progress note from today for furthe r details.
== END 2017-05-04 10:45 | disposition home or self-care (01) | DRG 153 ==
LOC: ERS 01:34 → ERHOLD 03:53 → 3SE 09:23
PROVIDERS: ADMIT Family Medicine; ATTEND Family Medicine
DX: H66.91 Otitis media, unspecified, right ear (principal); N17.9 Acute kidney failure, unspecified; E87.2 Acidosis; H90.5 Unspecified sensorineural hearing loss; K11.20 Sialoadenitis, unspecified; K11.21 Acute sialoadenitis; F10.10 Alcohol abuse, uncomplicated; I10 Essential (primary) hypertension; R94.5 Abnormal results of liver function studies; R74.0 Nonspecific elevation of levels of transaminase and lactic acid dehydrogenase [LDH]; F17.210 Nicotine dependence, cigarettes, uncomplicated
CPT/HCPCS: 36415; 80053; 80202; 81001; 83605; 85025; 93005; 93010; 96374; 96375; 96376; J2270; A4216; J0360; J0692; J1650; J1885; J2405; J3370; J7050